=== PATIENT | female | born 1960 | race Caucasian/White ===

== ENCOUNTER → 2017-03-06 | Outpatient (CLI) | payer OTHER ==
[~2017-03-06] MED LIST: ALBUAER2 INH; CITA40TA4 PO; LISI10TA PO; METO-551 PO; PRVC/20 PO
--- NOTE | 2017-03-06 11:13 | DIAGNOSTIC IMAGING REPORT ---
CT LUNG SCREENING, LOW DOSE WITH COMPUTER-AIDED DETECTION (CAD) CLINICAL HISTORY: Lung screening. Smoker. COMPARISON STUDY: Chest CT 01/12/2016. CT DOSE: 82.17 mGy.cm TECHNIQUE: Low-dose helical CT was acquired without intravenous contrast from lung apices to bases and reconstructed at 2.5 mm every 2 mm. CAD was utilized for this study. A dose lowering technique was utilized adhering to the principles of ALARA. FINDINGS: Mild emphysema. Punctate calcified granuloma within the right lung apex. No suspicious pulmonary nodules. The central airways are patent. No pleural effusions. No pneumothorax. No suspicious lytic or blastic osseous lesions. No mediastinal or hilar lymphadenopathy. Mild calcified plaque within the aortic arch. The heart is normal in size. The visualized liver, spleen, and adrenal glands are unremarkable. IMPRESSION: No suspicious pulmonary nodules. CAD FINDINGS: Overall Lung RADS Category: 1 Lung RADS Management Recommendation: Continue annual lung cancer screening. Lung RADS Follow Up Date: 2018-03-06 Lung RADS Nodule ID: Electronically signed by: Dileep Arnold M.D. 03/06/2017 11:11 AM Dictated Date/Time: 03/06/2017 11:04 AM
== END | disposition home or self-care (01) ==
LOC: C.CTS 10:29
PROVIDERS: ATTEND Internal Medicine
DX: Z12.2 Encounter for screening for malignant neoplasm of respiratory organs (principal)

== ENCOUNTER → 2017-04-29 | Outpatient (CLI) | payer BC, OTHER ==
[2017-04-29 13:02] LABS: HEMOGLOBIN A1C 5.8 % (4.5-5.6)
[2017-04-29 13:47] LABS: BLOOD UREA NITROGEN 10 mg/dl (7-18); CALCIUM 9.5 mg/dl (8.5-10.1); CARBON DIOXIDE 27 mmol/L (21-32); CREATININE 0.94 mg/dl (0.60-1.20); GLUCOSE 100 mg/dl (70-99); POTASSIUM 3.9 mmol/L (3.5-5.1); SODIUM 137 mmol/L (136-145)
== END | disposition home or self-care (01) ==
LOC: C.LABPBG 10:49
PROVIDERS: ATTEND Physician Assistant
DX: I10 Essential (primary) hypertension (principal); R60.9 Edema, unspecified; R53.83 Other fatigue; Z13.21 Encounter for screening for nutritional disorder; E53.8 Deficiency of other specified B group vitamins; Z13.1 Encounter for screening for diabetes mellitus

== ENCOUNTER 2019-05-10 08:17 | Observation (INO) ==
--- NOTE | 2019-04-19 16:19 | PAT Medication Instructions ---
Medication Instructions Date of Service April 19, 2019 Home Medications cholecalciferol (vitamin D3) 2,000 units PO QAM lisinopril 10 mg PO QPM metoprolol tartrate 50 mg PO QAM pravastatin 40 mg PO HS DO NOT take the morning of surgery cholecalciferol (vitamin D3) 2,000 units PO QAM Take morning of surgery With a small sip of water, OTHERWISE NOTHING TO EAT OR DRINK AFTER MIDNIGHT: metoprolol tartrate 50 mg PO QAM Take evening before surgery lisinopril 10 mg PO QPM pravastatin 40 mg PO HS Other Notes If you have any questions please call us at [phone] or [phone] or [phone] or [phone]
--- NOTE | 2019-04-21 08:27 | Anesthesiology Consultation ---
Date of Service April 21, 2019 Assessment & Plan (1) Encounter for pre-operative examination: Chart Review Chart Review: Acceptable Risk for Surgery and Patient seen in Pre Admission Testing Teaching & Discussion Instructed NPO after midnight before surgery, except medications with 15 cc of water. Medication instructions provided according to the PAT guidelines. History Surgery Operation Date: 05/10/19 09:50 Proposed Procedures p Laparoscopic Assisted Vaginal Hysterectomy, Bilateral Salpingo-Oophorectomy, Cystoscopy, Uterosacral Ligament Suspension, - Joni Holley MD s Anterior Posterior Colporraphy - Joni Holley MD Height/Weight Height: 5 ft 2 in Weight: 69.4 kg Allergies Allergy/AdvReac Type Severity Reaction Status Date / Time lorazepam Allergy Unknown Hives Verified 04/21/19 09:20 Medications Home Medications Medication Instructions Recorded Confirmed Last Taken cholecalciferol (vitamin D3) 2,000 units PO QAM 03/06/19 04/21/19 Unknown lisinopril 10 mg PO QPM 03/06/19 04/21/19 Unknown metoprolol tartrate 50 mg PO QAM 03/06/19 04/21/19 Unknown pravastatin 40 mg PO HS 03/06/19 04/21/19 Unknown Past Medical History Medical History Chronic back pain Dyslipidemia Hot flashes chronic x years Hypertension Menopause Night sweats chronic x years Prediabetes Made many dietary changes, most recent A1C 5.6%. Scoliosis Snores Uterine prolapse (Inactive) Exercise / Class Metabolic Activity II 4-5 Yardwork/Stairs/Walk up hill Past Family History Family History Father Coronary heart disease Mother Coronary heart disease Stroke Aunt Family history of diabetes mellitus Colorectal cancer Father Myocardial infarction Grandfather Myocardial infarction Sister Lung cancer Aunt Family history of diabetes mellitus Grandmother (Paternal) Family history of diabetes mellitus Sister Lung cancer Sister Lung cancer Other High cholesterol Hypertension Denies family history of Ovarian cancer Prostate cancer Breast cancer Past Surgical History Surgical History H/O shoulder surgery R shoulder History of colonoscopy with polypectomy History of surgery on extremity R ARM X3, L ARM X 1 PONV (postoperative nausea and vomiting) S/P decompression of ulnar nerve b/l elbow [place] teeth extracted Past Anesthesia History No Hx of Anesthesia Complications and No Family Hx of Anesthesia Complications (other than mother "slow to wake") "Slow to wake" x 1 but never reintubated or tx to ICU. History of PONV No Hx of Motion Sickness and History of PONV Social History Smoking Status: Current every day smoker tobacco type: cigarettes Smoking cigarettes per day: .5PPD AT MOST/ADVISED NPO Do You Dip or Chew Tobacco: No Hx Alcohol Use: Yes Alcohol type: beer alcohol intake frequency: a few times a month Hx Substance Use: No substance use type: does not use Review of Systems Pt denies any recent chest pain, shortness of breath, palpitations, cough, fever or URI. Physical Exam Vital Signs BP: 114/67 P: 61bpm SPO2: 98% RA T: 97.6 F R: 16 ENMT Mouth: + dentures (full upper) and + loose teeth (bottom incisors slightly loose); no chipped teeth Thyromental Distance: > or= 3.5 Finger Breadths (3.5) Mallampati Class: I Mouth / Teeth: 1. loose Neck normal visual inspection; neck extension not limited Respiratory normal respiratory effort Auscultation: lungs clear to auscultation bilaterally Cardiovascular Rate/Rhythm: regular rate and regular rhythm Heart Sounds: no murmur Extremities: no edema Testing Laboratory Results 04/21/19 08:39 04/21/19 08:39 Blood Type A Negative 04/21/19 08:39 Antibody Screen NEGATIVE 04/21/19 08:39 Electrocardiogram Date: 04/21/19 Findings: + NSR @ (55)
[2019-04-21 09:48] LABS: Basophils # (auto) 0.06 K/uL (0-0.2); Basophils % (auto) 0.8 %; Eosinophils # (auto) 0.22 K/uL (0-0.5); Hematocrit (blood only) 44.9 % (37-47); Hemoglobin 15.5 g/dL (12.0-16.0); Immature Granulocytes # (auto) 0.01 K/uL (0.00-0.02); Immature Granulocytes % (auto) 0.1 %; Lymphocytes # (auto) 1.83 K/uL (1.2-3.4); Lymphocytes % (auto) 24.9 %; Mean Corpuscular Hemoglobin 33.1 pg (25-34); Mean Corpuscular Hgb Conc 34.5 g/dL (32-36); Mean Corpuscular Volume 95.9 fL (80-100); Mean Platelet Volume 10.5 fL (7.4-10.4); Monocytes # (auto) 0.66 K/uL (0.11-0.59); Neutrophils # (auto) 4.57 K/uL (1.4-6.5); Neutrophils % (auto) 62.2 %; Platelet Count 245 K/uL (130-400); RDW Coefficient of Variation 12.8 % (11.5-14.5); RDW Standard Deviation 44.1 fL (36.4-46.3); Red Blood Count 4.68 M/uL (4.2-5.4); White Blood Count 7.35 K/uL (4.8-10.8)
[2019-04-21 09:56] LABS: BUN Creatinine Ratio 10.9 (10-20); Calcium 9.1 mg/dl (8.5-10.1); Creatinine Clr Calc Pharmacy 65.9 ml/min; Est GFR (African American) 87.5; Est GFR (Non-African American) 75.5; Potassium 4.1 mmol/L (3.5-5.1)
--- NOTE | 2019-04-21 15:04 | Electrocardiogram Report ---
Test Reason : Blood Pressure : / mmHG Vent. Rate : 064 BPM Atrial Rate : 064 BPM P-R Int : 200 ms QRS Dur : 078 ms QT Int : 414 ms P-R-T Axes : 070 071 071 degrees QTc Int : 427 ms Normal sinus rhythm Normal ECG No previous ECGs available Confirmed by Du Frost ([id number]) on 04/21/2019 3:03:25 PM Referred By: Joni Holley Confirmed By:Andrew Frost
[~2019-05-10 08:17] MED LIST changes: +ACETAMINOPHEN 1000 MG/100 ML IV IV ONE; -ALBUAER2 INH; +CEFAZOLIN 2000MG 2,000 MG/15 ML SYR IV SCH; -CITA40TA4 PO; +DEXAMETHASONE SOD INJ 4 MG/ML VIAL ONE; +LACTATED RINGER'S 1,000 ML IV SCH; +LARYING-O-JET KIT (LTA) ONE; +LIDOCAINE HCL 2% 2 ML VIAL/AMP(20MG/ML) INFIL ONE; -LISI10TA PO; +LR 15ML/HR IV SCH; -METO-551 PO; +ONDANSETRON INJ 2 MG/ML 2 ML VIAL ONE; +PHENAZOPYRIDINE HCL 100 MG TAB PO SCH; +PROPOFOL IV EMULSION 10 MG/ML 20 ML VIAL IV ONE; -PRVC/20 PO; +ROCURONIUM BROMIDE 10 MG/ML 5 ML VIAL ONE; +fentaNYL citrate 100 MCG/2 ML VIAL ONE
[2019-05-10 09:10] LABS: Basophils # (auto) 0.06 K/uL (0-0.2); Basophils % (auto) 0.7 %; Eosinophils # (auto) 0.27 K/uL (0-0.5); Eosinophils % (auto) 3.2 %; Hematocrit (blood only) 42.9 % (37-47); Hemoglobin 15.1 g/dL (12.0-16.0); Immature Granulocytes # (auto) 0.01 K/uL (0.00-0.02); Immature Granulocytes % (auto) 0.1 %; Lymphocytes % (auto) 21.6 %; Mean Corpuscular Hemoglobin 34.1 pg (25-34); Mean Corpuscular Volume 96.8 fL (80-100); Mean Platelet Volume 10.1 fL (7.4-10.4); Monocytes # (auto) 0.69 K/uL (0.11-0.59); Monocytes % (auto) 8.3 %; Neutrophils % (auto) 66.1 %; Platelet Count 246 K/uL (130-400); RDW Coefficient of Variation 12.8 % (11.5-14.5); RDW Standard Deviation 45.2 fL (36.4-46.3); Red Blood Count 4.43 M/uL (4.2-5.4); White Blood Count 8.33 K/uL (4.8-10.8)
[2019-05-10 09:13] LABS: Mean Corpuscular Hgb Conc 35.2 g/dL (32-36)
--- NOTE | 2019-05-10 09:54 | History & Physical Bridge Note ---
Date of Service May 10, 2019 History & Physical Bridge Note I have examined the patient, reviewed the History & Physical and in the interval since the performance of the History & Physical I have noted the following changes of clinical significance: no changes noted
[2019-05-10] MEDS ORDERED: ATROPINE SULFATE 0.1 MG/ML 10ML SYR IV PRN (09:59)
[2019-05-10] MEDS ORDERED: fentaNYL citrate 100 MCG/2 ML VIAL IV PRN (09:59)
[2019-05-10] MEDS ORDERED: ePHEDrine sulfate 50 MG/ML AMP IV PRN (09:59)
[2019-05-10] MEDS ORDERED: ONDANSETRON INJ 2 MG/ML 2 ML VIAL IV PRN ×2 (09:59→13:15)
[2019-05-10] MEDS ORDERED: SCOPOLAMINE 1.5 MG TDSY TD ONE (10:00)
[2019-05-10] MEDS ORDERED: BUPIVACAINE 0.5 % 5 MG/1 ML MPF 30ML VIAL ONE (10:04)
[2019-05-10] MEDS ORDERED: fentaNYL citrate 100 MCG/2 ML VIAL ONE ×2 (11:17→13:08)
[2019-05-10] MEDS ORDERED: ACETAMINOPHEN 325 MG TAB PO PRN (13:15)
[2019-05-10] MEDS ORDERED: IBUPROFEN 600 MG TAB PO PRN (13:15)
[2019-05-10] MEDS ORDERED: SIMETHICONE 80 MG CHEW PO PRN (13:15)
[2019-05-10] MEDS ORDERED: OXYCODONE/ACETAMINOPHEN 5mg/325mg TAB PO PRN (13:15)
--- NOTE | 2019-05-10 13:15 | Post Operative Brief Note ---
PG Immediate Post Op with CF Date of Surgery May 10, 2019 Pre & Post Diagnosis Operation Date: 05/10/19 09:50 Pre-Op Diagnosis: Uterine Prolapse, Vaginal Bleeding Post-Op Diagnosis: Uterine Prolapse, Vaginal Bleeding I identified the patient and participated in the time-out.: Yes Procedure Operation Date: 05/10/19 09:50 Actual Procedures p Laparoscopic Assisted Vaginal Hysterectomy, Bilateral Salpingectomy, Cystoscopy, Uterosacral Ligament Suspension(Not Applicable) - Joni Holley MD Complications: None Surgeon Joni Holley MD Manager Card None Estimated Blood Loss 100 Findings Consistent with Post-Op Diagnosis Specimens Specimen Description: Permanent Specimen: A: Cervix, uterus, bilatateral fallopian tubes Drains Mendoza Catheter (Placed at start of procedure)
--- NOTE | 2019-05-10 14:50 | Anesthesiology Progress Note ---
Date of Service May 10, 2019 Anesthesia Post Procedure Vital Signs Vital Signs: Temp Pulse Pulse Resp BP Pulse Ox 05/10/19 14:00 36.0 C L 73 17 156/69 H 97 05/10/19 13:50 65 17 123/55 L 94 05/10/19 13:40 69 13 144/79 H 97 05/10/19 13:30 67 11 L 159/73 H 99 05/10/19 13:24 36.2 C L 70 12 158/90 H 97 05/10/19 08:53 36.6 C 69 18 140/75 99 Transfer of Care Handoff Completed per policy Notes Mental Status: alert / awake / arousable Patient Amnestic to Procedure: Yes Nausea / Vomiting: adequately controlled Pain: adequately controlled Airway Patency, RR, SpO2: stable & adequate BP & HR: stable & adequate Hydration State: stable & adequate Anesthetic Complications: no major complications apparent
[2019-05-10] MEDS ORDERED: CHECK SCOPOLAMINE PATCH PLACEMENT SCH (16:00)
[2019-05-10] MEDS ORDERED: PHENAZOPYRIDINE HCL 100 MG TAB PO PRN (18:09)
--- NOTE | 2019-05-12 12:29 | Discharge Summary (DS) ---
PROCEDURES WHILE ADMITTED: Laparoscopic assisted vaginal hysterectomy, bilateral salpingo-oophorectomy, uterosacral ligament vaginal vault suspension with cystoscopy. HOSPITAL COURSE: The patient was admitted for the above noted procedure. Procedures were performed without complication. The patient remained in house for recovery area for approximately 6-8 hours after the completion of the procedure, which the patient did recover well. There were no complications or concerns during her recovery course. The patient met all postoperative goals and was discharged home in stable condition. Both detailed written and verbal postoperative instructions were provided to the patient and all questions answered to patient's satisfaction prior to discharge. She will follow up in clinic at 2 and 6 weeks for visits and was instructed to call if any issues or concerns arose.
--- NOTE | 2019-05-12 12:55 | Operative Report (OR) ---
DATE OF OPERATION: 05/10/2019 PROCEDURE: Laparoscopic-assisted vaginal hysterectomy, bilateral salpingo-oophorectomy, uterosacral ligament vaginal vault suspension and cystoscopy. SURGEON: Joni Holley MD. PREOPERATIVE DIAGNOSIS: Symptomatic grade 3 uterine prolapse. POSTOPERATIVE DIAGNOSIS: Symptomatic grade 3 uterine prolapse, status post procedure. ESTIMATED BLOOD LOSS: 100 mL. DRAINS: Mendoza catheter. FLUIDS: Continuous lactated Ringer. URINE OUTPUT: Via Mendoza catheter. COMPLICATIONS: None. FINDINGS: There was noted to be protrusion of the prolapse of the cervix to approximately 1-2 cm past the hymenal ring. No significant anterior or posterior prolapse was appreciated. On laparoscopy, there was noted to be normal-appearing uterus, ovaries, fallopian tubes and grossly normal-appearing pelvis and abdominal cavity. DESCRIPTION OF PROCEDURE: The patient was taken to the operating room after consents were reviewed. The patient was properly identified upon presentation to the OR. General endotracheal anesthesia was obtained without difficulty. The patient was then prepped and draped in the normal sterile fashion. A preprocedural timeout was then performed. A Mendoza catheter was then placed within the bladder and the laparoscopic portion of the case was then initiated. A 5 mm incision was made in the inferior aspect of the umbilicus. A Veress needle was inserted through the incision and the abdomen was insufflated to 15 mmHg. There was noted to be symmetric abdominal rise, tympany over the liver and opening pressure of approximately 3 mmHg - all consistent with appropriate intra-abdominal insufflation. A 5 mm optically guided trocar was introduced through the incision and the immediate visualization was notable for atraumatic entry. 5 mm incisions were made in the right and left lower quadrants and trocars were introduced through these incisions under direct visualization, atraumatic entry noted. Inspection of the abdomen and pelvis was performed with findings as above. The bilateral ureters were noted and noted to be quite distal to the IP ligaments. The right fallopian tube and ovary were grasped, and the IP ligament was serially cauterized up to the level of the uterine cornua. The right round ligament was then also dissected at approximately mid distance between the pelvic sidewall and the uterus, and a bladder flap was created anteriorly. Attention was then turned to the left adnexa. The left fallopian tube and ovary were grasped and the IP ligament was serially dissected with the Harmonic scalpel to the level of the uterine cornua. The left round ligament was then grasped and serially cauterized approximately mid distance between the uterus and the pelvic sidewall. The bladder flap was then continued anteriorly from the left side contacting with the right side. The laparoscopic portion of the case was then stopped at this time and the remainder of the procedure was performed via vaginal procedure. A weighted speculum was then placed within the vagina and retractors were able to provide visualization of the cervix. The cervix was grasped with Kochers x2. The cervicovaginal junction was then identified, and an incision was made anteriorly starting at the 9 o'clock to 6 o'clock position, and the vagina and bladder were dissected off the cervix and lower uterine segment allowing entry into the peritoneal cavity. Post the incision, the cervicovaginal junction was then identified posteriorly and the colpotomy was then continued from the 6 o'clock to 9 o'clock position on the inferior aspect of the cervix. The posterior vagina was then dissected posteriorly to the peritoneum, which was then dissected allowing entry into the posterior cul-de-sac. A retractor was then placed in both anterior and posterior colpotomy into the abdominal cavity and the remaining dissectible portion of the uterus and cervix was identified. Darrell clamps were then used to serially clamp, cut and tie the uterosacral ligaments bilaterally. These sutures were left intact for later use for the suspension. The Darrell clamps were then used to clamp, dissect and tie the bilateral uterine vessels. This was continued circumferentially up the broad ligament until the uterus and adnexa was fully free and was delivered through the vagina. The posterior cuff was then sutured with 0 Vicryl in continuous running locked stitch to achieve hemostasis of the posterior vaginal cuff. On inspection of the posterior vagina and anterior vagina, there is noted to be no significant prolapse noted after the hysterectomy was complete and the decision was made just to proceed with the hysterectomy with uterosacral ligament suspension. The vaginal cuff was then closed with 3-0 Vicryl in continuous running stitch. After closure of the cuff was achieved, a cystoscopy was performed and noted to have bilateral ureteral efflux and intact bladder. The uterosacral ligament suspension was then performed by tying the uterosacral ligament sutures together and elevating the apex of the vagina. The retractor was then removed from the vagina and then the abdomen and pelvis were reinspected laparoscopically and noted to have continued hemostasis. The decision was made to end the case at this time. Needle, sponge and instrument counts for both parts of the procedure were correct x2. The patient was awoken from anesthesia and taken to recovery room in excellent condition. I attest to the content of the Intraoperative Record and any orders documented therein. Any exception s are noted below.
== END 2019-05-10 20:30 | disposition home or self-care (01) ==
LOC: ASU 08:17 → 4N 08:17